=== PATIENT | male | born 1950 | race Hispanic/Latino ===

== ENCOUNTER 2024-08-26 23:22 | Emergency (ER) | payer OTHER ==
[2024-08-26] MEDS ORDERED: ONDANSETRON 4 MG/2 ML VIAL ONE (23:46)
[2024-08-26] MEDS ORDERED: NA CHLORIDE 0.9% 1,000 ML ONE (23:47)
[2024-08-27 00:10] LABS: Albumin 3.1 g/dL (3.4-5.0); Albumin/Globulin Ratio 0.8 (1.1-1.8); Anion Gap 9.2 mEq/L (5.0-15.0); Bilirubin Total 0.5 mg/dL (0.2-1.0); Protein, Total 7.1 g/dL (6.4-8.2)
[2024-08-27 00:11] LABS: Absolute Eosinophils 0.1 K/uL (0-0.5); Absolute Lymphocytes (CBC) 0.2 K/uL (0.7-4.9); Absolute Monocytes 0.4 K/uL (0.1-1.3); Absolute Neutrophil 10.9 K/uL (1.8-8.0); Basophils % 0.3 % (0-1.3); Eosinophils % 0.5 % (0-4.4); Hematocrit 43.2 % (39.6-49.0); Hemoglobin 14.4 g/dL (13.6-17.9); Lymphocytes % 2.1 % (15.3-44.8); MCHC 33.5 g/dL (32.0-36.0); MCV 89.5 fL (80-100); MPV 8.2 fL (7.6-11.3); Monocytes % 3.3 % (3.3-12.3); Neutrophils % 93.8 % (41.7-73.7); Nucleated Red Blood Cells % 0.2 % (0-0); Platelets 295 thou/uL (152-406); RBC Red Blood Cell Count 4.82 M/uL (4.33-5.43); Red Cell Distribution Width 14.2 % (12.1-15.2)
[2024-08-27 00:21] LABS: Potassium 4.2 mEq/L (3.5-5.1)
[2024-08-27] MEDS ORDERED: PROMETHAZINE INJ 25 MG/ML AMP ONE (00:47)
[2024-08-27] MEDS ORDERED: MORPHINE 2 MG/ML SYR ONE (00:48)
[2024-08-27 01:52] LABS: Band Neutrophils 3 % (0-1); Blood Morphology Comment NOT SEEN (NOT SEEN); Differential Total Cells Count 100; Lymphocytes 3 % (15-42); Monocytes 1 % (0-10); Platelet Estimate ADEQ; Segmented Neutrophils 92 % (40-80)
--- NOTE | 2024-08-27 03:37 | RAD REPORT ---
EXAMINATION: CT Abdomen Pelvis W Contrast CLINICAL INDICATION: Male, 74 years old. ABD PAIN TECHNIQUE: CT abdomen and pelvis was performed, after the administration of IV [facility] Axial, sagittal and coronal reconstructions were obtained. One or more of the following dose reduction techniques were used: Automated exposure control, adjustment of the mA and k V according to patient size, and iterative reconstruction. Unless otherwise specified, incidental findings do not require dedicated imaging follow-up. COMPARISON: No prior exam. FINDINGS: Motion artifact at the level of the upper abdomen limits evaluation. LOWER CHEST: The visualized lung bases are clear. LIVER: Normal in size and contour. No focal lesion. BILIARY SYSTEM: No suspicious abnormalities. SPLEEN: Normal size. No focal lesion. PANCREAS: No mass, ductal dilation, or tamir-pancreatic fluid. ADRENALS: Normal; no mass. KIDNEYS: Normal size and contour. No hydronephrosis. Nonobstructing left interpolar 6 mm calculus. No nobstructing right lower pole 2 to 3 mm calculus. URINARY BLADDER: Decompressed limiting evaluation.. GASTROINTESTINAL TRACT: Fluid opacification of nondistended distal small bowel. Mildly distended cecu m with fluid opacification of proximal colon reaching the transverse colon No evidence of free air, significant intra-abdominal free fluid, bowel obstruction or abscess. APPENDIX: Appendix not visualized, but no inflammatory changes in region of appendix. LYMPH NODES: No lymphadenopathy. MUSCULOSKELETAL: Diffuse osteopenia which limits evaluation. Severe multilevel spinal degenerative ch anges. Wedge compression deformity of L4, with bridging endplate osteophytes, favored to be chronic. Mild to moderate superior endplate compression deformities at T11-L2, of indeterminate age. ADDITIONAL FINDINGS: None. IMPRESSION: Nonspecific fluid opacification of nondistended distal small bowel and mildly distended cecum, extend ing to the transverse colon, could relate to enteritis or diarrheal state. Osseous compression deformities of T11, T12, and the lumbar spine sparing L5, favored to be chronic, but ultimately of indeterminate age. Nonobstructing bilateral renal calculi largest measuring 6 mm on the left.
--- NOTE | 2024-08-27 04:03 | EDPHYS ---
Physician Documentation [facility] Name: Ralph Abbott Age: 74 yrs Sex: Male : 1950 Arrival Date: 08/26/2024 Time: 23:22 Bed 18 Private MD: ED Physician Linwood Palma HPI: 08/27 00:05 This 74 yrs old Male presents to ER via EMS with complaints of vomiting and sp3 abdominal pain. 00:05 74-year-old male with history of cerebral palsy, depression, anxiety, quadriplegia sp3 presents to the ED with chief complaint vomiting and right-sided abdominal pain from alf. Patient had active vomiting for EMS. Vital signs were normal for them., ROS, history and physical limited secondary to cerebral palsy and lack of communication.. Historical: - Allergies: 08/26 23:31 No Known Allergies; jb4 - PMHx: 23:31 Cerebral palsy; Muscle weakness; Depressive disorder; Anxiety; quadriplegia; kyphosis; jb4 musle wasting and atrophy; BPH; Dysphagia; weakness; cognitive communication deficit; - Immunization history:: Adult Immunizations up to date. - Infectious Disease History:: Denies. - Social history:: Smoking status: Patient denies any tobacco usage or history of. ROS: 08/27 00:07 Unable to obtain ROS due to patient's inability to understand questions, sp3 Exam: 00:07 Constitutional: This is a well developed, well nourished patient who is awake, alert, sp3 and in no acute distress. Head/Face: Normocephalic, atraumatic. Eyes: Pupils equal round and reactive to light, extra-ocular motions intact. Lids and lashes normal. Conjunctiva and sclera are non-icteric and not injected. Cornea within normal limits. Periorbital areas with no swelling, redness, or edema. Neck: Trachea midline, no thyromegaly or masses palpated, and no cervical lymphadenopathy. Supple, full range of motion without nuchal rigidity, or vertebral point tenderness. No Meningismus. Chest/axilla: Normal chest wall appearance and motion. Nontender with no deformity. No lesions are appreciated. Cardiovascular: Regular rate and rhythm with a normal S1 and S2. No gallops, murmurs, or rubs. Normal PMI, no JVD. No pulse deficits. Respiratory: Lungs have equal breath sounds bilaterally, clear to auscultation and percussion. No rales, rhonchi or wheezes noted. No increased work of breathing, no retractions or nasal flaring. Back: No spinal tenderness. No costovertebral tenderness. Full range of motion. Skin: Warm, dry with normal turgor. Normal color with no rashes, no lesions, and no evidence of cellulitis. MS/ Extremity: Pulses equal, no cyanosis. Neurovascular intact. Full, normal range of motion. 00:07 Abdomen/GI: Active emesis noted without blood or mucus. Abdomen is soft, with no rebound, guarding or peritoneal signs., Vital Signs: 08/26 23:29 BP 119 / 72; Pulse 85; Resp 20; Temp 98.2(O); Pulse Ox 99% on R/A; Weight 54.43 kg (M); jb4 Pain 0/10; 08/27 00:00 BP 122 / 80; Pulse 89; Resp 18; Pulse Ox 97% ; al5 00:30 BP 119 / 68; Pulse 86; Resp 15; Pulse Ox 97% ; al5 01:00 BP 121 / 76; Pulse 89; Resp 16; Pulse Ox 95% ; al5 02:00 BP 108 / 62; Pulse 83; Resp 16; Pulse Ox 94% ; al5 03:00 BP 105 / 68; Pulse 77; Resp 15; Pulse Ox 98% ; al5 04:00 BP 99 / 59; Pulse 75; Resp 15; Pulse Ox 98% ; al5 04:30 BP 97 / 63; Pulse 67; Resp 16; Pulse Ox 98% ; al5 05:00 BP 91 / 60; Pulse 62; Resp 15; Pulse Ox 98% ; al5 05:30 BP 102 / 67; Pulse 64; Resp 14; Pulse Ox 98% ; al5 06:00 BP 109 / 61; Pulse 64; Resp 16; Pulse Ox 99% ; al5 06:30 BP 100 / 59; Pulse 61; Resp 15; Pulse Ox 99% ; al5 08/26 23:29 Pain Scale: Adult jb4 MDM: 08/26 23:24 Medical Screening Exam initiated sp3 08/27 00:08 Data reviewed: vital signs, nurses notes, EMS record, alf records, old medical sp3 records, lab test result(s), radiologic studies. ED course: 74-year-old male with PMH above now with abdominal pain and vomiting. Abdominal pain is reported through family. Differential diagnosis includes viral illness, foodborne illness, biliary pathology, other intra-abdominal pathology, kidney stone, UTI, among others. Workup will include CT scan of the abdomen pelvis with IV contrast, general labs, UA and general supportive care. IV fluids also given along with ondansetron IV. Disposition pending workup and patient course.. 04:00 ED course: No leukocytosis however left shift present with bands. CT demonstrates sp3 diarrheal state. Will administer IV antibiotics and discharged back to facility on p.o. antibiotics as long as patient is not having emesis. Patient much improved on that front while in the ED given the medications he has received. Vital signs currently completely normal.. 08/26 23:24 Order name: CBC with Diff; Complete Time: 03:45 sp3 08/26 23:24 Order name: CMP; Complete Time: 01:19 sp3 08/26 23:24 Order name: Lipase; Complete Time: 01:19 sp3 08/27 00:17 Order name: Manual Differential; Complete Time: 03:45 EDMS 08/26 23:56 Order name: CT Abd/Pelvis - IV Contrast Only; Complete Time: 03:45 sp3 08/26 23:24 Order name: IV Saline Lock; Complete Time: 23:37 sp3 08/26 23:24 Order name: Labs collected and sent; Complete Time: 23:37 sp3 Administered Medications: 08/26 23:55 Drug: Ondansetron IVP 4 mg IVP once; over 2 minutes Route: IVP; Site: left forearm; jb4 08/27 04:03 Follow up: Response: No adverse reaction al5 08/26 23:55 Drug: NS 0.9% IV 1000 ml IV at 1 bolus Per protocol; to be given as a bolus over 60 jb4 minutes Route: IV; Rate: 1 bolus; Site: left forearm; 08/27 04:03 Follow up: Response: No adverse reaction; IV Status: Completed infusion; IV Intake: al5 1000ml 00:54 Drug: morphine IVP or IV 2 mg IVP once over 4 mins Route: IVP; Infused Over: 4 mins; al5 Site: left forearm; 04:03 Follow up: Response: No adverse reaction; Pain is decreased al5 00:55 Drug: Promethazine IVP 12.5 mg IVP once Route: IVP; Site: left forearm; al5 04:03 Follow up: Response: No adverse reaction; Nausea is decreased al5 04:20 Drug: metroNIDAZOLE IVPB 500 mg 100 ml IVPB at 200 ml/hr once over 30 mins Volume: 100 al5 ml; Route: IVPB; Rate: 200 ml/hr; Infused Over: 30 mins; Site: left forearm; 05:31 Follow up: Response: No adverse reaction; IV Status: Completed infusion; IV Intake: al5 100ml 05:31 Drug: Ciprofloxacin IVPB 400 mg 200 ml IVPB once over 60 mins Volume: 200 ml; Route: al5 IVPB; Infused Over: 60 mins; Site: left forearm; 06:58 Follow up: Response: No adverse reaction; IV Status: Completed infusion; IV Intake: al5 200ml Disposition Summary: 08/27/24 04:02 Discharge Ordered Notes: Location: Home sp3 Condition: Stable sp3 Diagnosis - Gastroenteritis, vomiting sp3 Followup: sp3 - With: Private Physician - When: Upon discharge from the Emergency Department - Reason: Continuance of care Discharge Instructions: - Discharge Summary Sheet sp3 - Vomiting, Adult sp3 Forms: - Medication Reconciliation Form sp3 - Antibiotic Education sp3 - Prescription Opioid Use sp3 - Patient Portal Instructions sp3 - Leadership Thank You Letter sp3 Prescriptions: - Cipro 500 mg Oral tablet - take 1 tablet ORAL route every 12 hours for 7 days; 14 tablet; Refills: 0, sp3 Product Selection Permitted - Flagyl 500 mg Oral tablet - take 1 tablet ORAL route every 8 hours for 7 days; 21 tablet; Refills: 0, sp3 Product Selection Permitted - ondansetron 8 mg Oral Tablet,disintegrating - take 1 tablet ORAL route every 12 hours; 15 tablet; Refills: 0, Product sp3 Selection Permitted Signatures: Dispatcher [employer] Galdino Starkey PA PA cp Bryson, James, RN RN jb4 Linwood Palma MD MD sp3 Suzy Posadas RN RN al5
--- NOTE | 2024-08-27 04:03 | ER ---
Nurse's Notes [facility] Name: Ralph Abbott Age: 74 yrs Sex: Male : 1950 Arrival Date: 08/26/2024 Time: 23:22 Bed 18 Private MD: Diagnosis: Gastroenteritis, vomiting Presentation: 08/26 23:29 Chief complaint: EMS states: [facility] staff reports pt is having abdominal jb4 pain and vomited twice. Coronavirus screen: At this time, the client does not indicate any symptoms associated with coronavirus-19. Ebola Screen: No symptoms or risks identified at this time. Initial Sepsis Screen: Does the patient meet any 2 criteria? No. Patient's initial sepsis screen is negative. Does the patient have a suspected source of infection? No. Patient's initial sepsis screen is negative. Risk Assessment: Do you want to hurt yourself or someone else? Patient reports no desire to harm self or others. Onset of symptoms was August 26, 2024. Transition of care: patient was not received from another setting of care. 23:29 Method Of Arrival: EMS: [facility] jb4 23:29 Acuity: ALLA 3 jb4 Historical: - Allergies: 23:31 No Known Allergies; jb4 - PMHx: 23:31 Cerebral palsy; Muscle weakness; Depressive disorder; Anxiety; quadriplegia; kyphosis; jb4 musle wasting and atrophy; BPH; Dysphagia; weakness; cognitive communication deficit; - Immunization history:: Adult Immunizations up to date. - Infectious Disease History:: Denies. - Social history:: Smoking status: Patient denies any tobacco usage or history of. Screenin/11 00:10 [facility] ED Fall Risk Assessment (Adult) History of falling in the last 3 months, jb4 including since admission No falls in past 3 months (0 pts) Confusion or Disorientation Yes (5 pts) Intoxicated or Sedated No (0 pts) Impaired Gait Yes (1 pt) Mobility Assist Device Used No (0 pt) Altered Elimination Yes (1 pt) Score/Fall Risk Level 3 or more points = High Risk Oriented to surroundings, Maintained a safe environment. Abuse screen: Denies threats or abuse. Nutritional screening: No deficits noted. Tuberculosis screening: No symptoms or risk factors identified. Assessment: 08/26 23:45 General: Appears in no apparent distress. uncomfortable, Behavior is calm, cooperative, jb4 appropriate for age. Pain: Complains of pain in abdomen Pain does not radiate. Unable to use pain scale. Patient is disoriented. Neuro: Level of Consciousness is awake, confused, Oriented to person. Cardiovascular: Patient's skin is warm and dry. Respiratory: Airway is patent Respiratory effort is even, unlabored, Respiratory pattern is regular, symmetrical. GI: Abdomen is flat, non-distended, Parent/caregiver reports the patient having nausea, vomiting. Derm: Skin is intact, Skin is pink, warm \T\ dry. Musculoskeletal: Circulation, motion, and sensation intact. Range of motion: intact in all extremities. 08/27 00:21 General: Appears in no apparent distress. uncomfortable. Pain: Unable to use pain al5 scale. Does not appear to understand pain scale. Neuro: Level of Consciousness is awake, confused, Oriented to person. Cardiovascular: Capillary refill < 3 seconds Patient's skin is warm and dry. Respiratory: Airway is patent Respiratory effort is even, unlabored, Respiratory pattern is regular, symmetrical. GI: Abdomen is flat, non-distended, Parent/caregiver reports the patient having nausea, vomiting, pain. : No signs and/or symptoms were reported regarding the genitourinary system. EENT: No signs and/or symptoms were reported regarding the EENT system. Derm: Skin is intact, Skin is pink, warm \T\ dry. normal. Musculoskeletal: Circulation, motion, and sensation intact. Range of motion: intact in all extremities, muscle weakness. 01:57 Reassessment: Patient appears in no apparent distress at this time. No changes from al5 previously documented assessment. Patient and/or family updated on plan of care and expected duration. Pain level reassessed. 03:53 Reassessment: Patient appears in no apparent distress at this time. No changes from al5 previously documented assessment. Patient and/or family updated on plan of care and expected duration. Pain level reassessed. 04:04 Reassessment: discharge pending antibiotics. al5 05:37 Reassessment: Patient appears in no apparent distress at this time. No changes from al5 previously documented assessment. Patient and/or family updated on plan of care and expected duration. Pain level reassessed. 06:13 Reassessment: gave report to [facility], facility arranging transfer at this al5 time. 06:57 Reassessment: Patient appears in no apparent distress at this time. No changes from al5 previously documented assessment. Patient and/or family updated on plan of care and expected duration. Pain level reassessed. 07:34 Reassessment: spoke with Ernestina at [place]. she states transportation doesn't arrive kc6 until 0900 but she will call her and see if she is available sooner. Vital Signs: 08/26 23:29 BP 119 / 72; Pulse 85; Resp 20; Temp 98.2(O); Pulse Ox 99% on R/A; Weight 54.43 kg (M); jb4 Pain 0/10; 08/27 00:00 BP 122 / 80; Pulse 89; Resp 18; Pulse Ox 97% ; al5 00:30 BP 119 / 68; Pulse 86; Resp 15; Pulse Ox 97% ; al5 01:00 BP 121 / 76; Pulse 89; Resp 16; Pulse Ox 95% ; al5 02:00 BP 108 / 62; Pulse 83; Resp 16; Pulse Ox 94% ; al5 03:00 BP 105 / 68; Pulse 77; Resp 15; Pulse Ox 98% ; al5 04:00 BP 99 / 59; Pulse 75; Resp 15; Pulse Ox 98% ; al5 04:30 BP 97 / 63; Pulse 67; Resp 16; Pulse Ox 98% ; al5 05:00 BP 91 / 60; Pulse 62; Resp 15; Pulse Ox 98% ; al5 05:30 BP 102 / 67; Pulse 64; Resp 14; Pulse Ox 98% ; al5 06:00 BP 109 / 61; Pulse 64; Resp 16; Pulse Ox 99% ; al5 06:30 BP 100 / 59; Pulse 61; Resp 15; Pulse Ox 99% ; al5 08/26 23:29 Pain Scale: Adult jb4 ED Course: 08/26 23:24 Patient arrived in ED. sp3 23:24 Linwood Palma MD is Attending Physician. sp3 23:31 Triage completed. jb4 23:31 Arm band placed on right wrist. jb4 23:37 CBC with Diff Sent. af3 23:37 CMP Sent. af3 23:37 Lipase Sent. af3 08/27 00:10 Patient has correct armband on for positive identification. Bed in low position. Call jb4 light in reach. Side rails up X 1. Provided Education on: plan of care to brother.. 00:29 Suzy Posadas, RN is Primary Nurse. al5 01:48 CT Abd/Pelvis - IV Contrast Only In Process Unspecified. EDMS 04:02 No provider procedures requiring assistance completed. al5 07:00 Report received from Suzy Richter RN. kc6 07:00 Pulse ox on. NIBP on. Door closed. Noise minimized. Lights dimmed. Warm blanket given. kc6 Pillow given. Verbal reassurance given. 07:21 Primary Nurse role handed off by Suzy Posadas, RN eb Administered Medications: 08/26 23:55 Drug: Ondansetron IVP 4 mg IVP once; over 2 minutes Route: IVP; Site: left forearm; jb4 08/27 04:03 Follow up: Response: No adverse reaction al5 08/26 23:55 Drug: NS 0.9% IV 1000 ml IV at 1 bolus Per protocol; to be given as a bolus over 60 jb4 minutes Route: IV; Rate: 1 bolus; Site: left forearm; 08/27 04:03 Follow up: Response: No adverse reaction; IV Status: Completed infusion; IV Intake: al5 1000ml 00:54 Drug: morphine IVP or IV 2 mg IVP once over 4 mins Route: IVP; Infused Over: 4 mins; al5 Site: left forearm; 04:03 Follow up: Response: No adverse reaction; Pain is decreased al5 00:55 Drug: Promethazine IVP 12.5 mg IVP once Route: IVP; Site: left forearm; al5 04:03 Follow up: Response: No adverse reaction; Nausea is decreased al5 04:20 Drug: metroNIDAZOLE IVPB 500 mg 100 ml IVPB at 200 ml/hr once over 30 mins Volume: 100 al5 ml; Route: IVPB; Rate: 200 ml/hr; Infused Over: 30 mins; Site: left forearm; 05:31 Follow up: Response: No adverse reaction; IV Status: Completed infusion; IV Intake: al5 100ml 05:31 Drug: Ciprofloxacin IVPB 400 mg 200 ml IVPB once over 60 mins Volume: 200 ml; Route: al5 IVPB; Infused Over: 60 mins; Site: left forearm; 06:58 Follow up: Response: No adverse reaction; IV Status: Completed infusion; IV Intake: al5 200ml Medication: 00:00 VIS not applicable for this client. al5 Intake: 04:03 IV: 1000ml; Total: 1000ml. al5 05:31 IV: 100ml; Total: 1100ml. al5 06:58 IV: 200ml; Total: 1300ml. al5 Outcome: 04:02 Discharge ordered by sp3 08:27 Patient left the ED. Signatures: Dispatcher [employer] ED[facility] Chayo Cooper RN RN Chet Galvan RN RN jb4 Lori Rosen Setul, MD MD sp3 Yoselin Carpenter RN RN kc6 Suzy Posadas RN RN al5 Breanna Johnson
[2024-08-27] MEDS ORDERED: CIPROFLOXACIN 400mg IV 400 MG/200 ML BAG IV ONE (04:10)
[2024-08-27] MEDS ORDERED: METRONIDAZOLE 500mg IVPB 500 MG/100 ML BAG IV ONE (04:11)
[2024-08-27 08:32] VITALS: TEMP 98.2
[2024-08-27 08:44] VITALS: O2SAT 99
[2024-08-27 08:45] VITALS: BP 100/59
== END 2024-08-27 08:27 | disposition home or self-care (01) ==
LOC: ER 23:22
DX: K52.9 Noninfective gastroenteritis and colitis, unspecified (principal); G80.8 Other cerebral palsy
CPT/HCPCS: 96365; 96367; 96361; 85025; 36415; 83690; 80053; 74177; 96375; 99284; 96366; Q9967; J2550; J2270; J2405; J0744; J7030